=== PATIENT | female | born 1985 | race Caucasian/White ===

== ENCOUNTER 2018-08-08 20:21 | Outpatient (REF) | payer MEDICAID, SELFPAY | END 2018-08-08 20:41 | LOC: NCHCN 20:21 | PROVIDERS: PCP Family Medicine; Visit Provider Family Medicine | DX: R19.7 Diarrhea, unspecified (principal) | CPT/HCPCS: 87329; 87177 ==

== ENCOUNTER 2018-08-20 20:00 | Outpatient (REF) | payer MEDICAID, SELFPAY ==
[2018-08-20 20:55] LABS: Abs Immature Grans 0.01 k/cumm (0.0-0.09); Absolute Basophil Count 0.01 k/cumm (0.0-0.2); Absolute Eosinophil Count 0.07 k/cumm (0.0-0.7); Absolute Lymphocyte Count 2.28 k/cumm (1.2-3.4); Absolute Monocyte Count 0.45 k/cumm (0.11-0.7); Absolute Neutrophil Count 4.34 k/cumm (1.2-6.7); Basophils % 0.1; HCT 38.8 % (36.0-46.0); HGB 13.3 g/dL (12.0-15.5); Immature Grans % 0.1; Lymphocytes % 31.8; Mean Corp. HGB Concentration 34.3 g/dL (32.0-36.0); Mean Corpuscular Hemoglobin 27.3 pg (27.0-33.0); Mean Corpuscular Volume 79.7 fL (80-95); Mean Platelet Volume 10.9 fL (8.0-11.0); Monocytes % 6.3; Neutrophils % 60.7; Platelet Count 269 x1000/uL (130-400); RBC 4.87 m/cumm (4.00-5.20); RBC Distribution Width 13.1 % (11.7-14.6); White Blood Cell Count 7.16 k/cumm (4.4-10.8)
[2018-08-20 21:51] LABS: TSH (W/Ref FT4) 2.22 uIU/mL (0.358-3.74)
== END 2018-08-20 20:20 ==
LOC: NCHCN 20:00
PROVIDERS: PCP Family Medicine; Visit Provider Physician Assistant Medical
DX: R53.83 Other fatigue (principal)
CPT/HCPCS: 84443; 85025

== ENCOUNTER 2018-09-16 02:06 | Outpatient (CLI) | payer MEDICAID, SELFPAY ==
--- NOTE | 2018-09-16 10:00 | SATEXT_ITS ---
September 16, 2018 1000h Assessment: Ms. Alcocer presents for nutritional counseling for chronic diarrhea. She reports that she has had this problem for the past three since she has had her gallbladder out. She has always eaten a low fat diet as she reports she has become accustomed to it in order to prevent a gallbladder attack. Her dietary recall shows that she eats quite moderately and does not eat any of the same things consistently. She does eat apples daily [place] Ms. Alcocer reports that at this time she does not take any medications for her diarrhea. Ms. Alcocer reports that her diarrhea affects her life such that she does not make many plans to leave the house depending on what she thinks the bathroom situation will be. Nutritional Diagnosis: Altered gastrointestinal function as evidenced by patient report of chronic diarrhea. Intervention: We discussed that dietary interventions for diarrhea can be trial and error. I did suggest that she speak to her health care provider about a trial of cholestyramine given that her chronic diarrhea issues started after she had her gallbladder removed. Ms. Alcocer said she would bring that up. In addition to any medication, I explained that we would still trial dietary interventions. I suggested that we start with a 1-2 week strict trial of a low FODMAP diet, which would exclude her daily apple and products made from gluten flours among many other things. However, there were many low FODMAP foods that she eats and could include in her daily life. Provided written materials. Monitoring and Evaluation: 1. Ms. Alcocer will email me with food records for one week or call me. I will monitor her progress and her tolerance to a low FODMAP diet. 2. Will evaluate her nutrition care plan based on her tolerance to a low FODMAP and will take it from there. 3. Would suggest a trial of cholestyramine if her healthcare provider and the patient are in agreement. Thank you for the referral.
== END 2018-09-16 02:26 ==
PROVIDERS: PCP Nurse Practitioner Family; Visit Provider Dietitian, Registered
DX: R19.7 Diarrhea, unspecified (principal); Z71.3 Dietary counseling and surveillance
CPT/HCPCS: 97802

== ENCOUNTER 2018-10-13 00:28 | Outpatient (CLI) | payer MEDICAID, SELFPAY ==
--- NOTE | 2018-10-13 09:23 | DI.US_ITS ---
SYMPTOM/DIAGNOSIS:THYROMEGALY E01.0 THYROID ULTRASOUND: Routine examination. The right lobe measures 5 x 1.6 x 1.0 cm The left lobe measures 5.1 x 1.3 x 1.0 cm/ The isthmus measures up to 0.7 cm in thickness. The thyroid gland is homogeneous with normal and symmetric blood flow. No evidence of a thyroid mass is identified. IMPRESSION: Normal thyroid ultrasound.
== END 2018-10-13 00:48 ==
PROVIDERS: PCP Nurse Practitioner Family; Visit Provider Otolaryngology Otolaryngology/Facial Plastic Surgery
DX: E01.0 Iodine-deficiency related diffuse (endemic) goiter (principal)
CPT/HCPCS: 76536

== ENCOUNTER 2018-11-03 11:36 | Outpatient (REF) | payer MEDICAID, SELFPAY ==
[2018-11-03 13:03] LABS: *AMPHETAMINES SCREEN URINE Negative (Negative); *BARBITURATES SCREEN URINE Negative (Negative); *BENZODIAZEPINES SCREEN URINE Negative (Negative); Cannabinoids THC Negative (Negative); Cocaine Screen,Urine Negative (Negative); METHADONE URINE SCREEN Negative (Negative); OPIATES URINE SCREEN Negative (Negative)
[2018-11-03 13:06] LABS: Tricyclic Antidepressants Negative (Negative)
[2018-11-04 14:51] LABS: Chlamydia Result Negative; GC Result Negative; Specimen Description CERVIX
== END 2018-11-03 11:56 ==
LOC: LBN 11:36
PROVIDERS: PCP Nurse Practitioner Family; Visit Provider Advanced Practice Midwife
DX: Z34.91 Encounter for supervision of normal pregnancy, unspecified, first trimester (principal); Z11.3 Encounter for screening for infections with a predominantly sexual mode of transmission
CPT/HCPCS: 80307; 87491; 87591; 87086

== ENCOUNTER 2018-11-13 01:24 | Outpatient (CLI) | payer MEDICAID, SELFPAY ==
--- NOTE | 2018-11-13 14:52 | W.NUTRFU ---
Date of service: 11/13/18 Time of Service: 08:30 Nutritional Follow up NOTE: Solange presents for nutritional counseling for healthful nutrition therapy for . She reports that she does not gain more than 25 pounds in this . She is 65. Her pregravid weight is 172 lbs which gives her a BMI of 30.5kg/m2 consistent with class 1 obesity. Her expected weight gain is 15 to 25 lbs. She is currently almost 12 weeks gestation and has gained zero pounds, which is WNL. We discussed that she is on a good track to not gain excessive weight. Her dietary recall shows that she eats very healthfully and not excessively. We reviewed a 2400 calorie eating plan for her second and third trimester as well as sample menus and a cookbook. Solange will follow up with me as needed throughout her for weight management nutrition therapy and/or general nutrition therapy. She has my contact information and is encouraged to contact me with any questions or concerns regarding her nutrition therapy. Time Spent in Nutritional Counseling and Treatment: 20 minutes face to face
== END 2018-11-13 01:44 ==
PROVIDERS: PCP Nurse Practitioner Family; Visit Provider Dietitian, Registered
DX: Z34.91 Encounter for supervision of normal pregnancy, unspecified, first trimester (principal); Z71.3 Dietary counseling and surveillance
CPT/HCPCS: 97802

== ENCOUNTER 2018-12-29 01:05 | Outpatient (CLI) | payer MEDICAID, SELFPAY ==
--- NOTE | 2018-12-29 08:33 | DI.US_ITS ---
Many abnormalities cannot be diagnosed. A normal exam does not exclude a congenital anomaly. Radiology No. LMP: Exam Date: 12/29/18 [facility] wks days on EDC ([facility]) 06/01/19 PREDICTED GESTATIONAL AGE NUMBER 18 weeks with a range of 17 week to 19 weeks. 1 Determined by___1STUS___LMP_X__HISTORY Info. pertaining to fetus # PLACENTA PRESENTATION Grade I Cephalic___ Anterior___Posterior__X_ Breech____ Right Left Transverse(head right___ Fundal___Low-lying___Previa___ Transverse(head left___ Varying____X__ BIOMETRY AMNIOTIC FLUID BPD: 40 mm 18.1 weeks Normal HC: 155 mm 18.3 weeks AC: 129 mm 18.3 weeks FL: 27 mm 18.3 weeks AMNIOTIC FLUID INDEX >26 WK CRL: mm weeks Cisterna Magna: 2.1 mm CI: 76 RUQ: LUQ Cerebellum: 1.83 cm EFW: 237 grams 69th Percentile RLQ: LLQ Total: cms Composite AGE= 18.3 wks EDC by US 05/29/19 BIOPHYSICAL PROFILE ANATOMY IDENTIFIED SCORE 0/2 Heart: 4-Chamber__X_Rate:BPM___152__ LVOT: X____ RVOT:____X____ Amniotic Fluid(>2cms)____ Stomach:____X___ Kidneys:____X___ Respirations (>30 secs) Bladder: X___ Post. Fossa:___X Body Flex/Extension 3 vessel cord:__X Ventricles:___X cord insertion:___X__ Lips:____X Extremity Flex/Extension spinal morphology:___X Nose:X Total Score= Palate:____X___ NS=not seen The fetus was in variable position during the exam. Placenta is anterior. The biometric measurements correspond to 18 weeks 3 days, consistent with previous dating. No abnormalities are seen. The amount of amniotic fluid appears normal. The cervix appears intact. The placenta appears low lying, measuring 1.5 cm. from the internal os. IMPRESSION: Low lying placenta. anatomy survey is within normal limits.
== END 2018-12-29 01:25 ==
PROVIDERS: PCP Nurse Practitioner Family; Visit Provider Advanced Practice Midwife
DX: Z34.92 Encounter for supervision of normal pregnancy, unspecified, second trimester (principal)
CPT/HCPCS: 76805

== ENCOUNTER 2019-03-10 01:00 | Outpatient (CLI) | payer MEDICAID, SELFPAY ==
--- NOTE | 2019-03-10 10:49 | DI.US_ITS ---
SYMPTOMS/DIAGNOSIS: CHECK PLACENTA, PREVIOUS LOW LYING PLACENTA OB ULTRASOUND: Comparison is made with [id number]. The fetus is in breech position. The placenta is posterior. The tip of the placenta is far from the internal os. There is no evidence of a low lying placenta. cardia activity is noted at 139 bpm. The amniotic fluid amount appears visually normal. IMPRESSION: No evidence of a low lying placenta. Predicted Gestational Age: Indication/History: 28 Wks Range: to Prior US done on: Determined by: First US LMP History EDC by prior US: For multiple gestations: Baby PLACENTA: Grade: I-II Location: Anterior Posterior X PRESENTATION: RT LT LOW LYING PREVIA Cephalic Trans (Head RT LT ) Varied Breech X BIOMETRY: Anatomy Identified: BPD: mm wks 4 chamber Heart Heart Rate 139 BPM HC: mm wks LVOT Post Fossa AC: mm wks RVOT Ventricles FL: mm wks Stomach Nose Bladder Lips Cisterna Magna: mm CI: Kidneys Palate Cerebellum: mm 3 vessel cord Spine EFW: grms % Cord Insertion NS= not seen Composite Age (US) wks Many abnormalities cannot be diagnosed. A normal exam does not exclude congenital abnormality. EDC by US Amniotic Fluid Index: Oligo Normal Polyhydramnios COMMENTS: RUQ: LUQ: RLQ: LLQ: Total: cm Biophysical Profile: Score 0/2 JOHANNA (>2cm) Respirations (>30 sec) Body flexion/extension Extremity flexion/extension TOTAL SCORE Placental tip 11.2 cm from internal os
== END 2019-03-10 01:20 ==
PROVIDERS: PCP Nurse Practitioner Family; Visit Provider Advanced Practice Midwife
DX: Z34.93 Encounter for supervision of normal pregnancy, unspecified, third trimester (principal); Z36.2 Encounter for other antenatal screening follow-up
CPT/HCPCS: 76815

== ENCOUNTER 2019-03-10 10:34 | Outpatient (CLI) | payer MEDICAID, SELFPAY ==
[2019-03-10 10:56] LABS: Abs Immature Grans 0.09 k/cumm (0.0-0.09); Absolute Basophil Count 0.01 k/cumm (0.0-0.2); Absolute Eosinophil Count 0.05 k/cumm (0.0-0.7); Absolute Lymphocyte Count 1.44 k/cumm (1.2-3.4); Absolute Monocyte Count 0.39 k/cumm (0.11-0.7); Basophils % 0.1; Eosinophils % 0.5; HCT 35.3 % (36.0-46.0); HGB 12.3 g/dL (12.0-15.5); Immature Grans % 0.9; Mean Corp. HGB Concentration 34.8 g/dL (32.0-36.0); Mean Corpuscular Hemoglobin 29.6 pg (27.0-33.0); Mean Corpuscular Volume 85.1 fL (80-95); Mean Platelet Volume 9.7 fL (8.0-11.0); Monocytes % 4.1; Neutrophils % 79.4; Platelet Count 216 x1000/uL (130-400); RBC 4.15 m/cumm (4.00-5.20); RBC Distribution Width 13.6 % (11.7-14.6); White Blood Cell Count 9.58 k/cumm (4.4-10.8)
[2019-03-10 11:10] LABS: Glucose,1 Hr (Glucola) 141 mg/dL (80-140)
[2019-03-11 10:54] LABS: Hepatitis B Surface Ag Negative (NEGAT)
[2019-03-11 11:03] LABS: HIV-1/2 Ag & Ab Screen Negative (NEGAT)
[2019-03-11 11:19] LABS: Hepatitis C Ab w Rflx HCV PCR Negative (NEGAT)
[2019-03-11 12:14] LABS: Rubella IgG Ab (UVM) Positive; Syphilis Serology (RPR) Negative (Negative); Varicella IgG Antibody Positive
== END 2019-03-10 10:54 ==
PROVIDERS: PCP Nurse Practitioner Family; Visit Provider Advanced Practice Midwife
DX: Z34.92 Encounter for supervision of normal pregnancy, unspecified, second trimester (principal); Z11.4 Encounter for screening for human immunodeficiency virus [HIV]; Z11.59 Encounter for screening for other viral diseases; Z01.84 Encounter for antibody response examination; Z36.2 Encounter for other antenatal screening follow-up
CPT/HCPCS: 36415; 76815; 80055; 82950; 86787; 86803; 86850; 86900; 86901; 87340; 87389; 90384; 86592; 86762

== ENCOUNTER 2019-03-10 11:18 | Outpatient (CLI) | payer MEDICAID, SELFPAY | END 2019-03-10 11:38 | PROVIDERS: PCP Nurse Practitioner Family; Visit Provider Advanced Practice Midwife | DX: Z01.818 Encounter for other preprocedural examination (principal) ==

== ENCOUNTER 2019-03-27 02:00 | Outpatient (CLI) | payer MEDICAID, SELFPAY ==
[2019-03-27 08:20] LABS: INR 0.9 (0.9-1.1); PTT Activated 25.3 sec (21.0-31.4); Prothrombin Time 9.3 sec (9.3-11.0)
[2019-03-27 10:01] LABS: Glucose 1 Hour 149 mg/dL
[2019-03-27 11:46] LABS: Glucose 3 Hour 125 mg/dL
== END 2019-03-27 02:20 ==
PROVIDERS: PCP Nurse Practitioner Family; Visit Provider Advanced Practice Midwife
DX: Z34.90 Encounter for supervision of normal pregnancy, unspecified, unspecified trimester (principal); R73.09 Other abnormal glucose
CPT/HCPCS: 36410; 82951; 85610; 85730

== ENCOUNTER 2019-05-04 11:18 | Outpatient (CLI) | payer MEDICAID, SELFPAY ==
[2019-05-04 12:31] LABS: Tricyclic Antidepressants Negative (Negative)
[2019-05-04 12:37] LABS: *AMPHETAMINES SCREEN URINE Negative (Negative); *BARBITURATES SCREEN URINE Negative (Negative); *BENZODIAZEPINES SCREEN URINE Negative (Negative); Cannabinoids THC Negative (Negative); Cocaine Screen,Urine Negative (Negative); METHADONE URINE SCREEN Negative (Negative); OPIATES URINE SCREEN Negative (Negative)
[2019-05-07 10:23] LABS: Buprenorphine Negative; Norbuprenorphine Negative
== END 2019-05-04 11:38 ==
PROVIDERS: Advanced Practice Midwife; PCP Nurse Practitioner Family; Visit Provider Advanced Practice Midwife
DX: Z34.93 Encounter for supervision of normal pregnancy, unspecified, third trimester (principal)
CPT/HCPCS: 80307

== ENCOUNTER 2019-05-11 15:55 | Outpatient (REF) | payer MEDICAID, SELFPAY | END 2019-05-11 16:15 | LOC: LBN 15:55 | PROVIDERS: PCP Nurse Practitioner Family; Visit Provider Advanced Practice Midwife | DX: Z34.93 Encounter for supervision of normal pregnancy, unspecified, third trimester (principal); Z36.85 Encounter for antenatal screening for Streptococcus B | CPT/HCPCS: 87081 ==

== ENCOUNTER 2019-05-18 00:40 | Outpatient (CLI) | payer MEDICAID, SELFPAY ==
--- NOTE | 2019-05-18 10:44 | DI.US_ITS ---
SYMPTOM/DIAGNOSIS: EFW, H/O UTERINE SCAR FROM PREVIOUS Z98.891 OBSTETRICAL ULTRASOUND: There is a single uterine gestation. Estimated sonographic age is 40 weeks. The fetus is in the cephalic presentation. heart rate is 132 BPM. anatomic evaluation was not performed at this time. The placenta is posterior without evidence of previa. Amniotic fluid index is 17.3 cm, visually amniotic fluid is within normal limits. IMPRESSION: Single living intrauterine gestation, estimated sonographic age is 40 weeks. Predicted Gestational Age: Indication/History: 37 +6 Wks Range: 36 +6 to 38 +6 Prior US done on: 06/02/2019 Determined by: First US LMP History EDC by prior US: For multiple gestations: Baby PLACENTA: Grade: II - III Location: Posterior PRESENTATION: RT LT LOW LYING PREVIA Cephalic XX Trans (Head RT LT ) Varied Breech BIOMETRY: Anatomy Identified: BPD: 97 mm 39 +3 wks 4 chamber Heart Heart Rate 132 BPM HC: 356 mm 41 +5 wks LVOT Post Fossa AC: 372 mm 41 +1 wks RVOT Ventricles FL: 73 mm 37 +3 wks Stomach Nose Bladder Lips Cisterna Magna: mm CI: 83 Kidneys Palate Cerebellum: mm 3 vessel cord Spine EFW: 4039 grms 98 % Cord Insertion NS= not seen Composite Age (US) 40 wks Many abnormalities cannot be diagnosed. A normal exam does not exclude congenital abnormality. EDC by US 05/18/19 Amniotic Fluid Index: Normal COMMENTS: RUQ: 3.98 LUQ: 6.74 RLQ: 3.3 LLQ: 3.07 Total: 17.3 cm Biophysical Profile: Score 0/2 JOHANNA (>2cm) Respirations (>30 sec) Body flexion/extension Extremity flexion/extension TOTAL SCORE
== END 2019-05-18 01:00 ==
PROVIDERS: PCP Nurse Practitioner Family; Visit Provider Advanced Practice Midwife
DX: Z34.93 Encounter for supervision of normal pregnancy, unspecified, third trimester (principal); Z98.891 History of uterine scar from previous surgery
CPT/HCPCS: 76815

== ENCOUNTER 2019-05-20 01:01 | Inpatient (IN) | payer MEDICAID, SELFPAY ==
[2019-05-20 02:26] LABS: HCT 37.6 % (36.0-46.0); Mean Corp. HGB Concentration 34.6 g/dL (32.0-36.0); Mean Corpuscular Volume 83.9 fL (80-95); Mean Platelet Volume 10.1 fL (8.0-11.0); Platelet Count 225 x1000/uL (130-400); RBC 4.48 m/cumm (4.00-5.20); White Blood Cell Count 10.51 k/cumm (4.4-10.8)
[2019-05-20] MEDS: Normal Saline Flush 10 ML SYR ×3 (08:33→15:07)
[2019-05-20] MEDS: Acyclovir 400 MG TAB PO (10:09)
[2019-05-20] MEDS: Normal Saline Flush 10 ML SYR IVP (10:36)
== END 2019-05-20 17:03 | disposition short-term general hospital (02) | DRG 833 ==
PROVIDERS: Admitting Provider Advanced Practice Midwife; PCP Nurse Practitioner Family; Visit Provider Advanced Practice Midwife
DX: O42.92 Full-term premature rupture of membranes, unspecified as to length of time between rupture and onset of labor (principal); O34.211 Maternal care for low transverse scar from previous cesarean delivery; Z3A.38 38 weeks gestation of pregnancy; Z22.4 Carrier of infections with a predominantly sexual mode of transmission
CPT/HCPCS: 36415; 85027; 86850; 86900; 86901; 86870

== ENCOUNTER 2019-05-27 15:24 | Outpatient (CLI) | payer MEDICAID, SELFPAY ==
[2019-05-27 16:01] LABS: HCT 39.1 % (36.0-46.0); HGB 13.4 g/dL (12.0-15.5); Mean Corp. HGB Concentration 34.3 g/dL (32.0-36.0); Mean Corpuscular Hemoglobin 28.8 pg (27.0-33.0); Mean Corpuscular Volume 83.9 fL (80-95); Mean Platelet Volume 9.7 fL (8.0-11.0); Platelet Count 276 x1000/uL (130-400); RBC 4.66 m/cumm (4.00-5.20); RBC Distribution Width 13.3 % (11.7-14.6); White Blood Cell Count 7.91 k/cumm (4.4-10.8)
== END 2019-05-27 15:44 ==
PROVIDERS: PCP Nurse Practitioner Family; Visit Provider Advanced Practice Midwife
DX: Z34.93 Encounter for supervision of normal pregnancy, unspecified, third trimester (principal)
CPT/HCPCS: 36415; 85027

== ENCOUNTER 2019-07-02 11:11 | Outpatient (REF) | payer MEDICAID, SELFPAY ==
--- NOTE | 2019-07-02 09:25 | PAPFT_PTH ---
PATIENT: Solange Alcocer LOC: [facility] U#:[id number] AGE/SX: 34/F ROOM: RE07/02/[address]: Megan Rosado : 1985 BED: DIS: 07/02/2019 SPEC #: [id number] RECD: 07/02/19 12:50 STATUS: ALEX REQ #: [id number] YVES: 07/02/19 09:[address]: Megan Rosado DEPT: REPLACED BY [facility] Cytology RECD BY: Carine Sellers ENTERED: 07/02/19 12:50 SP TYPE: PAPFT OTHR DR: Michelle Arroyo Tissues: 1 - CX/ENDOCX FOR PAP SMEARS Procedures: PAP THIN PREP/UVM Screening HPV DNA PROBE Comments: [id number]
== END 2019-07-02 11:31 ==
LOC: LBN 11:11
PROVIDERS: PCP Nurse Practitioner Family; Visit Provider Advanced Practice Midwife
DX: N89.8 Other specified noninflammatory disorders of vagina (principal); Z12.4 Encounter for screening for malignant neoplasm of cervix; Z11.51 Encounter for screening for human papillomavirus (HPV)
CPT/HCPCS: 88142; 87480; 87510; 87624; 87660

== ENCOUNTER 2021-05-02 16:40 | Outpatient (REF) | payer MEDICAID, SELFPAY ==
[2021-05-02 22:07] LABS: HCT 42.9 % (36.0-46.0); HGB 14.2 g/dL (11.2-15.7); MCH 27.3 pg (27.0-33.0); MCHC 33.1 % (32.0-36.0); MCV 82.3 fL (80-95); MPV 10.9 fL (8.0-11.0); Platelet Count 270 10^3/uL (130-400); RBC 5.21 10^6/uL (3.93-5.22); RDW 13.1 % (11.7-14.6); RDW-SD 38.5 fL; WBC 4.97 10^3/uL (4.4-10.8)
[2021-05-02 22:24] LABS: Hemoglobin A1C 5.3 % (<5.7)
[2021-05-02 22:31] LABS: TSH 1.44 uIU/mL (0.36-3.74)
[2021-05-02 22:45] LABS: Vitamin D 25 Total 29.6 ng/mL (30-100)
== END 2021-05-02 16:41 | disposition home or self-care (01) ==
LOC: NCHCN 16:40
PROVIDERS: PCP Nurse Practitioner Family; Visit Provider Nurse Practitioner Family
DX: R53.83 Other fatigue (principal)
CPT/HCPCS: 82306; 85027; 83036; 84443

== ENCOUNTER 2021-05-03 11:47 | Outpatient (REF) | payer MEDICAID, SELFPAY ==
[2021-05-03 11:04] LABS: C Diff PCR Negative (Negative)
[2021-05-03 23:45] LABS: Campylobacter PCR Negative (Negative); Salmonella PCR Negative (Negative); Shiga Toxin PCR Negative (Negative); Shigella/Enteroinvasive Ecoli Negative (Negative)
== END 2021-05-03 11:48 | disposition home or self-care (01) ==
LOC: NCHCN 11:47
PROVIDERS: PCP Nurse Practitioner Family; Visit Provider Nurse Practitioner Family
DX: Z00.00 Encounter for general adult medical examination without abnormal findings (principal); R19.7 Diarrhea, unspecified
CPT/HCPCS: 87329; 87493; 87505; 82272; 83630; 87177

== ENCOUNTER 2021-07-26 17:00 | Outpatient (REF) | payer MEDICAID, SELFPAY ==
[2021-07-26 20:22] LABS: TSH 2.38 uIU/mL (0.36-3.74)
[2021-07-27 17:59] LABS: Prolactin 9.4 ng/mL (See Table)
== END 2021-07-26 17:01 | disposition home or self-care (01) ==
LOC: NCHCN 17:00
PROVIDERS: PCP Nurse Practitioner Family; Visit Provider Nurse Practitioner Family
DX: N64.52 Nipple discharge (principal); N64.4 Mastodynia
CPT/HCPCS: 84146; 84443

== ENCOUNTER 2021-09-15 02:59 | Outpatient (CLI) | payer MEDICAID, SELFPAY ==
[2021-09-15 16:59] LABS: Iron 58 ug/dL (50-170); Total Iron Binding Capacity 366 ug/dL (250-450); Transferrin Sat 16 % (15-50)
[2021-09-15 17:41] LABS: ALT 26 U/L (14-59); AST 15 U/L (15-37); Albumin 4.3 g/dL (3.4-5.0); Alkaline Phosphatase 55 U/L (46-116); Anion Gap 11.1 mmol/L (3-11); BUN 12 mg/dL (7-18); Bilirubin, Total 0.3 mg/dL (0.2-1.0); CO2 26.9 mmol/L (21.0-32.0); CREATININE 0.7 mg/dL (0.55-1.02); Calcium 8.9 mg/dL (8.5-10.1); Chloride 104 mmol/L (98-107); Ferritin 39 ng/mL (8-252); Glucose 85 mg/dL (74-106); Potassium 3.5 mmol/L (3.5-5.1); Sodium 142 mmol/L (136-145); TSH 1.54 uIU/mL (0.36-3.74); Total Protein 7.5 g/dL (6.4-8.2); Vitamin B12 350 pg/mL (193-986)
[2021-09-15 17:42] LABS: Folate > 20.0 ng/mL (8.6-20.0)
[2021-09-15 17:58] LABS: FREE T4 0.95 ng/dL (0.76-1.46)
[2021-09-15 22:21] LABS: T3, Total 142 ng/dL (97-169)
[2021-09-18 08:41] LABS: DHEA Sulfate 126 ug/dL (96-512)
[2021-09-18 10:39] LABS: IgA 215 mg/dL (85-499); IgG 952 mg/dL (610-1,616); IgM 150 mg/dL (35-242)
[2021-09-18 11:35] LABS: IgE 8 IU/mL (<158)
[2021-09-19 19:11] LABS: Testosterone, Free 0.33 ng/dL (0.06-1.03); Testosterone, Total 9.6 ng/dL (8-60)
[2021-09-20 10:08] LABS: Estradiol, Mass Spectrometry 19 pg/mL; Estrone 18 pg/mL
== END 2021-09-15 03:00 | disposition home or self-care (01) ==
LOC: LBO 02:59
PROVIDERS: PCP Nurse Practitioner Family; Visit Provider Naturopath
DX: R19.7 Diarrhea, unspecified (principal); R53.83 Other fatigue; N64.4 Mastodynia; R10.9 Unspecified abdominal pain
CPT/HCPCS: 36415; 80053; 82627; 82784; 84402; 84403; 82607; 82670; 82679; 82728; 82746; 82785; 83540; 83550; 84144; 84439; 84443; 84480

== ENCOUNTER 2023-01-14 13:37 | Outpatient (REF) | payer MEDICAID, SELFPAY ==
[2023-01-14 16:09] LABS: Hemoglobin A1C 5.3 % (<5.7)
[2023-01-14 16:53] LABS: Calculated LDL 88 mg/dL (<100); Cholesterol 153 mg/dL (<200); HDL Cholesterol 51 mg/dL (40-60); TSH 1.63 uIU/mL (0.36-3.74); Triglyceride 71 mg/dL (<150)
[2023-01-14 19:03] LABS: FREE T4 0.92 ng/dL (0.76-1.46)
[2023-01-15 09:17] LABS: HCT 40.1 % (36.0-46.0); HGB 13.5 g/dL (11.2-15.7); MCH 26.6 pg (27.0-33.0); MCHC 33.7 % (32.0-36.0); MCV 79 fL (80-95); MPV 10.8 fL (8.0-11.0); Platelet Count 282 10^3/uL (130-400); RBC 5.08 10^6/uL (3.93-5.22); RDW 13.1 % (11.7-14.6); WBC 5.15 10^3/uL (4.4-10.8)
[2023-01-15 18:51] LABS: FSH 6.4 mIU/mL (See Note); LH 5.1 mIU/mL (See Note); Prolactin 5.1 ng/mL (See Note)
[2023-01-16 09:50] LABS: DHEA Sulfate 123 ug/dL (75-410)
[2023-01-23 16:45] LABS: Testosterone, Free 0.43 ng/dL (<0.13-1.00); Testosterone, Total 12 ng/dL (8-60)
== END 2023-01-14 13:38 | disposition home or self-care (01) ==
LOC: NCHCN 13:37
PROVIDERS: PCP Nurse Practitioner Family; Visit Provider Nurse Practitioner Family
DX: F41.8 Other specified anxiety disorders (principal); L68.0 Hirsutism; L70.8 Other acne; R53.83 Other fatigue; Z13.1 Encounter for screening for diabetes mellitus; Z13.220 Encounter for screening for lipoid disorders
CPT/HCPCS: 80061; 82627; 84402; 84403; 85027; 83001; 83002; 83036; 84146; 84439; 84443

== ENCOUNTER 2023-04-04 09:50 | Emergency (ER) | payer MEDICAID, SELFPAY ==
[2023-04-04 10:01] VITALS: BP 111/80; PULSE 96; RESP 18; TEMP 36.7; O2SAT 98
--- NOTE | 2023-04-04 10:12 | W.ED.GENAD ---
Discharge Plan Disposition Patient Disposition: Home Discharge Details Clinical Impression: Diarrhea, Acute dehydration Primary Care Provider: Michelle Arroyo ED Provider: Ben Fallon Home Meds and New Rx's Prescriptions: New ondansetron 4 mg tablet,disintegrating 4 mg PO BID PRN (Reason: nausea and vomiting) Qty: 7 0RF No Action prenat.vits,carline,qgi-[id number] tablet 1 tab PO DAILY cholecalciferol (vitamin D3) 50 mcg (2,000 unit) capsule 50 mcg PO DAILY acetaminophen [Tylenol] 325 mg capsule 325 mg PO ONCE PRN multivitamin [Daily Multi-Vitamin] Tablet 1 tab PO DAILY zinc acetate 25 mg (zinc) capsule 25 mg PO DAILY Discharge Instructions Instructions: Dehydration (ED), Acute Diarrhea (ED) Medical Decision Making 38-year-old female presents with 3 to 4 days of nausea abdominal cramping and diarrhea with loose green stool no blood no mucus. Afebrile nontoxic hemodynamically stable. Consider viral syndrome viral gastroenteritis versus foodborne illness versus less likely diverticulitis or appendicitis. Must also consider UTI. Will obtain basic labs fluids antiemetics analgesia urinalysis. Disposition pending reassessment. 14: 15 patient resting comfortably feeling better after 2 L crystalloid. No vomiting in department. Color greatly improved symptomatology greatly improved. HPI General Date/Time Provider Initiated Documentation: 04/04/23 09:56. HPI Narrative: 38-year-old male presents with 3 days of nausea diarrhea multiple doses of loose green stool and abdominal cramping. Body aches and dehydration. History of cholecystectomy. Related Data Home Medications Medication Instructions Recorded Confirmed prenat.vits,carline,cwt-[id number]-xjwze 1 tab PO DAILY 09/26/18 07/02/19 acetaminophen 325 mg capsule 325 mg PO ONCE PRN 02/25/23 04/04/23 (Tylenol) cholecalciferol (vitamin D3) 50 50 mcg PO DAILY 02/25/23 04/04/23 mcg (2,000 unit) capsule multivitamin (Daily Multi-Vitamin 1 tab PO DAILY 02/25/23 04/04/23 tablet) zinc acetate 25 mg (zinc) capsule 25 mg PO DAILY 02/25/23 04/04/23 ondansetron 4 mg disintegrating 4 mg PO BID PRN nausea and 04/04/23 tablet vomiting #7 tabs Previous Rx's Medication Instructions Recorded ondansetron 4 mg disintegrating 4 mg PO BID PRN nausea and 04/04/23 tablet vomiting #7 tabs Allergies Allergy/AdvReac Type Severity Reaction Status Date / Time amoxicillin Allergy Unknown HIVES Verified 07/02/19 08:55 penicillin G Allergy Unknown HIVES Verified 07/02/19 08:55 cetirizine [From Zyrtec] Allergy Verified 02/25/23 11:49 clindamycin Allergy Verified 02/25/23 11:49 mold Allergy Verified 02/25/23 11:49 diphenhydramine HCl AdvReac Unknown anxious, Verified 07/02/19 08:55 [From Benadryl] paranoid, couln't sleep CILLINS Allergy Intermediate HIVES Uncoded 07/02/19 08:55 General Stated Complaint: Nausea/Vomit/Diar JORGE: 3 Review of Systems Narrative: Review of Systems Constitutional: negative Eyes: negative ENT: negative Cardiovascular: negative Respiratory: negative Gastrointestinal: Abdominal pain nausea diarrhea : negative Musculoskeletal: negative Skin: negative Neurologic: negative Psych: negative PFSH All Active Problems (Updated 04/04/23 @ 14:16 by Ben Fallon MD) Diarrhea (Acute) Acute dehydration (Acute) (Acute) Vaginal discharge (Acute) History of anxiety (Chronic) with third History of depression (Chronic) Vertigo (Chronic) Environmental allergies (Chronic) Previous section (Chronic) Herpes genitalis (Chronic) examination or test, positive result (Acute 05/01/16) Medical History (Updated 04/04/23 @ 14:16 by Ben Fallon MD) Acne Allergic rhinitis Anxiety Breast pain, right Calcium deposit in bursa of right hand Chronic diarrhea Deviated septum Diarrhea Dyspareunia Encounter for allergy testing Fatigue Headache Hirsutism History of migraine History of snoring Knee pain, left Left inguinal pain Low back pain Mammary duct ectasia Menorrhagia Pelvic pain in female Rhinosinusitis Seasonal allergies Sinusitis, acute Stress Surgical History section (12/16/16) Cholecystectomy (06/29/15) Dr. karyn Gerard Family History Mother Heart disease tachycardia with surgical intervention Father Mental disorder onmedications Sister No problems noted. Sister No problems noted. Brother No problems noted. Brother No problems noted. Brother No problems noted. Brother No problems noted. Brother No problems noted. Brother No problems noted. Other Myocardial infarction Social History Smoking/Tobacco Use Status: Former Tobacco Use Smoking risk assessment performed?: Yes Alcohol Intake: former Drug use: Never Substance use type: does not use Do you feel safe at home: Yes Do you feel safe in your relationship?: Yes Female Reproductive History Menstrual Age of Menarche: 16 Duration of menses: 3-5 days control method: condoms History History 5 Para 4 Hx # Term Pregnancies 4 Multiple births 0 Hx # Pregnancies 0 Ectopic pregnancies 0 AB induced 1 Hx Number of Living Children 4 AB spontaneous 0 Past Pregnancies Del. Date GA/Weeks # Preg Succ Route Wgt Sex Labor Lgth Anesthesia Location Prov Complic 06/18/11 40 No vaginal 3727.962 g Female 14 hrs [facility] 11/20/12 42 No vaginal 4365.827 g Male 24 [facility] 12/16/16 37 No 4365.827 g Male 24 hrs [facility] c/s by dr. charlton 05/21/19 38 No vaginal 3070.253 g Male [facility] Delivery Date: 06/18/11 Last Updated by: Zuly Izquierdo CNM w/o complications Delivery Date: 11/20/12 Last Updated by: Zuly Izquierdo CNM iol for post dates, w/o comp. Delivery Date: 12/16/16 Last Updated by: Megan Rosado CNM c/s for breech, in labor at 8 cms. Delivery Date: 05/21/19 Last Updated by: Ana Luisa Wagner LPN Presented at [facility] with PROM; transferred to [facility] due to previous and desired TOLAC after PROM; Exam Narrative Exam Narrative: Physical Examination General: alert, awake, cooperative, resting comfortably, no acute distress HEENT: normocephalic, atraumatic; PERRL, EOM intact, conjunctiva normal; no nasal discharge; moist mucous membranes, oral and pharyngeal mucosa normal, tolerating secretions Neck: supple, trachea midline; full ROM Chest: normal to inspection Respiratory: normal respiratory effort, speaking in full sentences, clear to auscultation, no wheezing, rales or rhonchi Cardiac: regular rate, regular rhythm, S1S2 intact, no murmurs rubs or gallops GI: abdomen soft, non-tender, non-distended; no palpable mass or hepatosplenomegaly Skin: no lesions, rashes or trauma appreciated Neuro: AAOx3, normal speech, moving all extremities Psych: Appropriate mood and affect Course Vital Signs Vital signs: Vital Signs Temperature 36.7 C 04/04/23 10:01 Pulse 96 H 04/04/23 10:01 Respiratory Rate 18 04/04/23 10:01 Blood Pressure 111/80 04/04/23 10:01 Pulse Oximetry 98 04/04/23 10:01 Temperature 36.7 C 04/04/23 10:01 Temperature Source Temporal Artery Scan 04/04/23 10:01 Pulse 96 H 04/04/23 10:01 Respiratory Rate 18 04/04/23 10:01 Respiratory Effort Normal 04/04/23 10:04 Blood Pressure 111/80 04/04/23 10:01 Blood Pressure Position Sitting 04/04/23 10:01 Pulse Oximetry 98 04/04/23 10:01 Oxygen Delivery Method Room Air 04/04/23 10:01 Oxygen Flow Rate 0 04/04/23 10:01 Pain Level 10 04/04/23 10:01
[2023-04-04] MEDS: Normal Saline 1,000 ML 1000 ML IV ×2 (10:27→13:47)
[2023-04-04] MEDS: Ondansetron 4 MG/2 ML VIAL IVP (10:27)
[2023-04-04] MEDS: ACETAMINOPHEN 1,000 MG/100 ML BTL 400 MG IVPB (10:27)
[2023-04-04 10:30] LABS: Absolute Basophil Count 0.01 10^3/uL (0.0-0.2); Absolute Eosinophil Count 0.01 10^3/uL (0.0-0.7); Absolute Lymphocyte Count 0.94 10^3/uL (1.2-3.4); Absolute Monocyte Count 0.41 10^3/uL (0.1-0.8); Absolute Neutrophil Count 1.64 10^3/uL (1.2-6.7); Basophils % 0.3; Eosinophils % 0.3; HGB 14.8 g/dL (11.2-15.7); Lymphocytes % 31.2; MCH 26.1 pg (27.0-33.0); MCHC 33.6 % (32.0-36.0); MCV 78 fL (80-95); MPV 9.6 fL (8.0-11.0); Monocytes % 13.6; Neutrophils % 54.6; Platelet Count 267 10^3/uL (130-400); RBC 5.68 10^6/uL (3.93-5.22); RDW 12.9 % (11.7-14.6); RDW-SD 36.3 fL; WBC 3.01 10^3/uL (4.4-10.8)
[2023-04-04 10:45] LABS: ALT 26 U/L (14-59); AST 25 U/L (15-37); Albumin 4.1 g/dL (3.4-5.0); Alkaline Phosphatase 58 U/L (46-116); Anion Gap 9.5 mmol/L (3-11); BUN 14 mg/dL (7-18); Bilirubin, Total 0.7 mg/dL (0.2-1.0); CO2 25.5 mmol/L (21.0-32.0); CREATININE 0.8 mg/dL (0.55-1.02); Calcium 8.8 mg/dL (8.5-10.1); Chloride 103 mmol/L (98-107); Estimated GFR 97.87 (mL/min/1.73m2); Glucose 92 mg/dL (74-106); Potassium 3.2 mmol/L (3.5-5.1); Sodium 138 mmol/L (136-145); Total Protein 8.4 g/dL (6.4-8.2)
[2023-04-04 11:37] LABS: Bilirubin Small (Negative); Blood Negative (Negative); Clarity Sl Cloudy (Clear); Glucose Negative (Negative); Ketones 15 mg/dL (Negative); Leukocyte Esterase Negative (Negative); Nitrite Negative (Negative); Urobilinogen 0.2 mg/dL (Up to 0.2)
[2023-04-04 11:43] LABS: Epithelial Cells Many HPF (Negative); RBC 0-2 HPF (0-2); WBC 0-2 HPF (0-5)
[2023-04-04 11:44] LABS: Bacteria Many HPF (Negative); C & S Indicated? No/Sq. Contamination; Casts Negative LPF (Negative); Crystals Negative HPF (Negative); Mucus Moderate (Negative)
[2023-04-04 14:23] VITALS: BP 128/71; PULSE 78; RESP 20; O2SAT 98
== END 2023-04-04 14:24 | disposition home or self-care (01) ==
PROVIDERS: Emergency Provider Emergency Medicine; PCP Nurse Practitioner Family
DX: R19.7 Diarrhea, unspecified (principal); E86.0 Dehydration; R11.2 Nausea with vomiting, unspecified
CPT/HCPCS: 80053; 81025; 96361; 96365; 96375; 99284; 81003; 81015; 85025; J0131; J2405

== ENCOUNTER 2023-12-13 12:37 | Emergency (ER) | payer MEDICAID, SELFPAY ==
[2023-12-13 12:43] VITALS: BP 131/74; PULSE 103; RESP 18; TEMP 36.9; O2SAT 98
--- NOTE | 2023-12-13 13:15 | DI.RAD_ITS ---
Exam(s) XR CHEST 2V PA LATERAL EXAM: XR CHEST 2V PA LATERAL CLINICAL HISTORY: cough, wheeze, shortness of breath TECHNIQUE: 2D digital imaging was performed of the chest. Two images were obtained. PA and lateral views were obtained. COMPARISON: No exams were available for comparison FINDINGS: MEDIASTINUM: Normal. HEART: Normal. PULMONARY VASCULATURE: Normal. LUNGS: Clear. PLEURAL SPACE: No pleural effusion or pneumothorax. BONE:Within normal limits for the patient's age. OTHER FINDINGS:Normal. IMPRESSION: No acute pulmonary findings. DATA REPOSITORY: RADIATION DOSE DELIVERED:
[2023-12-13 13:31] LABS: Abs Immature Grans 0.02 10^3/uL (0.0-0.06); Absolute Basophil Count 0.03 10^3/uL (0.0-0.2); Absolute Eosinophil Count 0.09 10^3/uL (0.0-0.7); Absolute Lymphocyte Count 0.89 10^3/uL (1.2-3.4); Absolute Monocyte Count 0.45 10^3/uL (0.1-0.8); Absolute Neutrophil Count 3.43 10^3/uL (1.2-6.7); Basophils % 0.6; Eosinophils % 1.8; HCT 39.4 % (36.0-46.0); HGB 13.2 g/dL (11.2-15.7); Immature Grans % 0.4; Lymphocytes % 18.1; MCH 25.1 pg (27.0-33.0); MCHC 33.5 % (32.0-36.0); MCV 75 fL (80-95); MPV 9.9 fL (8.0-11.0); Monocytes % 9.2; Neutrophils % 69.9; Platelet Count 252 10^3/uL (130-400); RBC 5.25 10^6/uL (3.93-5.22); RDW 13.7 % (11.7-14.6); RDW-SD 36.4 fL; WBC 4.91 10^3/uL (4.4-10.8)
[2023-12-13 13:52] LABS: ALT 22 U/L (14-59); AST 13 U/L (15-37); Albumin 4.2 g/dL (3.4-5.0); Alkaline Phosphatase 64 U/L (46-116); BUN 10 mg/dL (7-18); Bilirubin, Total 0.3 mg/dL (0.2-1.0); CREATININE 0.6 mg/dL (0.55-1.02); Calcium 8.7 mg/dL (8.5-10.1); Chloride 106 mmol/L (98-107); Estimated GFR 119.23 (mL/min/1.73m2); Glucose 101 mg/dL (74-106); Potassium 3.7 mmol/L (3.5-5.1); Sodium 142 mmol/L (136-145); Total Protein 8.1 g/dL (6.4-8.2); Troponin I < 50 ng/L (< or =60)
[2023-12-13 13:58] VITALS: RESP 2; RESP 9
[2023-12-13] MEDS: Albuterol/Ipratropium 3 ML UPD VIAL UPD (13:58)
[2023-12-13] MEDS: predniSONE 20 MG TAB 40 MG PO (13:58)
[2023-12-13 14:14] LABS: Influenza A PCR Negative (Negative); Influenza B PCR Negative (Negative); RSV PCR Negative (Negative)
[2023-12-13 14:17] LABS: Source Nasopharynx
[2023-12-13 14:23] LABS: COVID-19 PCR Positive (Negative)
--- NOTE | 2023-12-13 15:37 | W.ED.GENAD ---
HPI General Date/Time Provider Initiated Documentation: 12/13/23 12:54. HPI Narrative: This 38 year-old female presents with cough, wheeze, shortness of breath, family members are sick similar symptoms. Has pressure consistent shortness of breath and nonproductive cough. Related Data Home Medications Medication Instructions Recorded Confirmed acetaminophen 325 mg capsule 325 mg PO ONCE PRN 02/25/23 12/13/23 (Tylenol) cholecalciferol (vitamin D3) 50 50 mcg PO DAILY 02/25/23 12/13/23 mcg (2,000 unit) capsule multivitamin (Daily Multi-Vitamin 1 tab PO DAILY 02/25/23 12/13/23 tablet) zinc acetate 25 mg (zinc) capsule 25 mg PO DAILY 02/25/23 12/13/23 prednisone 20 mg tablet 40 mg (2 x 20 mg) PO ONCE #10 tabs 12/13/23 Previous Rx's Medication Instructions Recorded prednisone 20 mg tablet 40 mg (2 x 20 mg) PO ONCE #10 tabs 12/13/23 Allergies Allergy/AdvReac Type Severity Reaction Status Date / Time amoxicillin Allergy Unknown HIVES Verified 07/02/19 08:55 penicillin G Allergy Unknown HIVES Verified 07/02/19 08:55 cetirizine [From Zyrtec] Allergy Verified 02/25/23 11:49 clindamycin Allergy Verified 02/25/23 11:49 mold Allergy Verified 02/25/23 11:49 diphenhydramine HCl AdvReac Unknown anxious, Verified 07/02/19 08:55 [From Benadryl] paranoid, couln't sleep CILLINS Allergy Intermediate HIVES Uncoded 07/02/19 08:55 General Stated Complaint: RespSymp JORGE: 3 Course Vital Signs Vital signs: Vital Signs Temperature 36.9 C 12/13/23 12:43 Pulse 103 H 12/13/23 12:43 Respiratory Rate 18 12/13/23 12:43 Blood Pressure 131/74 12/13/23 12:43 Pulse Oximetry 98 12/13/23 12:43 Temperature 36.9 C 12/13/23 12:43 Temperature Source Oral 12/13/23 12:43 Pulse 103 H 12/13/23 12:43 Respiratory Rate 18 12/13/23 12:43 Respiratory Effort Short of Breath 12/13/23 13:11 Respiratory Depth Shallow 12/13/23 13:11 Blood Pressure 131/74 12/13/23 12:43 Pulse Oximetry 98 12/13/23 12:43 Oxygen Delivery Method Room Air 12/13/23 13:58 Oxygen Flow Rate 0 12/13/23 13:58 Pain Level 10 12/13/23 12:43 Lab/Test Results Lab/Test Results: Laboratory Tests Range/Units 12/13/23 13:05 WBC (4.4-10.8) 10^3/uL 4.91 RBC (3.93-5.22) 10^6/uL 5.25 H Hgb (11.2-15.7) g/dL 13.2 Hct (36.0-46.0) % 39.4 MCV (80-95) fL 75 L MCH (27.0-33.0) pg 25.1 L MCHC (32.0-36.0) % 33.5 RDW (11.7-14.6) % 13.7 Plt Count (130-400) 10^3/uL 252 MPV (8.0-11.0) fL 9.9 Immature Gran % 0.4 Neutrophils % 69.9 Lymphocytes % 18.1 Monocytes % 9.2 Eosinophils % 1.8 Basophils % 0.6 Nucleated RBC % (0.0-0.3) % 0.0 Absolute Neutrophils (1.2-6.7) 10^3/uL 3.43 Absolute Lymphocytes (1.2-3.4) 10^3/uL 0.89 L Absolute Monocytes (0.1-0.8) 10^3/uL 0.45 Absolute Eosinophils (0.0-0.7) 10^3/uL 0.09 Absolute Basophils (0.0-0.2) 10^3/uL 0.03 Sodium (136-145) mmol/L 142 Potassium (3.5-5.1) mmol/L 3.7 Chloride (98-107) mmol/L 106 Carbon Dioxide (21.0-32.0) mmol/L 24.0 Anion Gap (3-11) mmol/L 12.0 H BUN (7-18) mg/dL 10 Creatinine (0.55-1.02) mg/dL 0.6 Est GFR (CKD-EPI 2020) (mL/min/1.73m2) 119.23 Glucose (74-106) mg/dL 101 Calcium (8.5-10.1) mg/dL 8.7 Total Bilirubin (0.2-1.0) mg/dL 0.3 AST (15-37) U/L 13 L ALT (14-59) U/L 22 Alkaline Phosphatase (46-116) U/L 64 Troponin I (< or =60) ng/L < 50 Total Protein (6.4-8.2) g/dL 8.1 Albumin (3.4-5.0) g/dL 4.2 COVID-19 Source Nasopharynx SARS-CoV-2 (PCR) (Negative) Positive A Influenza Type A (PCR) (Negative) Negative Influenza Type B (PCR) (Negative) Negative RSV (PCR) (Negative) Negative Medical Decision Making Patient feeling better after DuoNeb, COVID-positive, well, had a supportive care Albuterol, prednisone for home Chest x-ray without acute abnormality per radiology interpretation my review Placed on steroids, nebs, negative chance of Feeling improvement, discharged home with steroids and inhaler Return precautions reviewed and patient expressed understanding Clinically very low suspicion for pulmonary embolism or coronary artery disease Return precautions reviewed and patient expressed understanding, vital stable, no hypoxia Quality:SDOH Health Related Social Needs: No Data to Display PFSH All Active Problems (Updated 12/13/23 @ 14:02 by PASCALE Brock) Bronchitis (Acute) (Acute) Vaginal discharge (Acute) History of anxiety (Chronic) with third History of depression (Chronic) Vertigo (Chronic) Environmental allergies (Chronic) Previous section (Chronic) Herpes genitalis (Chronic) examination or test, positive result (Acute 05/01/16) Medical History (Updated 12/13/23 @ 14:02 by PASCALE Brock) Allergic rhinitis Chronic diarrhea Menorrhagia Low back pain Rhinosinusitis History of migraine Headache Sinusitis, acute Seasonal allergies Knee pain, left Encounter for allergy testing Fatigue Diarrhea Mammary duct ectasia Breast pain, right Stress Hirsutism Anxiety Acne History of snoring Deviated septum Calcium deposit in bursa of right hand Left inguinal pain Pelvic pain in female Dyspareunia Surgical History section (12/16/16) Cholecystectomy (06/29/15) Dr. karyn Gerard Family History Mother Heart disease tachycardia with surgical intervention Father Mental disorder onmedications Sister No problems noted. Sister No problems noted. Brother No problems noted. Brother No problems noted. Brother No problems noted. Brother No problems noted. Brother No problems noted. Brother No problems noted. Other Myocardial infarction Social History Smoking/Tobacco Use Status: Former Tobacco Use Smoking risk assessment performed?: Yes Alcohol Intake: former Drug use: Never Substance use type: does not use Housing: house Do you feel safe at home: Yes Do you feel safe in your relationship?: Yes Female Reproductive History Menstrual Age of Menarche: 16 Duration of menses: 3-5 days control method: condoms History History 5 Para 4 Hx # Term Pregnancies 4 Multiple births 0 Hx # Pregnancies 0 Ectopic pregnancies 0 AB induced 1 Hx Number of Living Children 4 AB spontaneous 0 Past Pregnancies Del. Date GA/Weeks # Preg Succ Route Wgt Sex Labor Lgth Anesthesia Location [facility] 06/18/11 40 No vaginal 3727.962 g Female 14 hrs [facility] 11/20/12 42 No vaginal 4365.827 g Male 24 [facility] 12/16/16 37 No 4365.827 g Male 24 hrs regional c/s by dr. charlton 05/21/19 38 No vaginal 3070.253 g Male regional [facility] Delivery Date: 06/18/11 Last Updated by: Zuly Izquierdo CNM w/o complications Delivery Date: 11/20/12 Last Updated by: Zuly Izquierdo CNM iol for post dates, w/o comp. Delivery Date: 12/16/16 Last Updated by: Megan Rosado CNM c/s for breech, in labor at 8 cms. Delivery Date: 05/21/19 Last Updated by: Ana Luisa Wagner LPN Presented at [facility] with PROM; transferred to [facility] due to previous and desired TOLAC after PROM; Discharge Plan Disposition Patient Disposition: Home Condition: Stable Discharge Details Clinical Impression: Bronchitis Primary Care Provider: Michelle Arroyo ED Provider: Carine Chau Home Meds and New Rx's Prescriptions: New prednisone 20 mg tablet 40 mg PO ONCE Qty: 10 0RF Continued cholecalciferol (vitamin D3) 50 mcg (2,000 unit) capsule 50 mcg PO DAILY acetaminophen [Tylenol] 325 mg capsule 325 mg PO ONCE PRN multivitamin [Daily Multi-Vitamin] Tablet 1 tab PO DAILY zinc acetate 25 mg (zinc) capsule 25 mg PO DAILY Discharge Instructions Instructions: Acute Bronchitis (ED) Additional Instructions: Take prednisone daily, take your next dose tomorrow as you received a dose today 2 puffs of albuterol every 4-6 hours as needed for cough wheeze and shortness of breath Tylenol and ibuprofen as needed for discomfort Return earlier should you have new, worsening, or persistent complaints Referrals: Michelle Arroyo [Primary Care Provider] - Discharge Data Discharge Date/Time-TO BE ENTERED AT DEPARTURE: 12/13/23 16:41
[2023-12-13] MEDS: Albuterol HFA 8 GM 60 PUFF INH IH (16:35)
[2023-12-13 16:36] VITALS: PULSE 84; RESP 18; TEMP 37.2; O2SAT 97
[2023-12-13] MEDS: Normal Saline 1,000 ML 1000 ML IV (16:36)
--- NOTE | 2023-12-14 07:15 | NUR.NOTE ---
Accessed chart to determine orders for EKG and to determine whether or not one needs to be cancelled. None obtained. Nursing Note:
== END 2023-12-13 16:41 | disposition home or self-care (01) ==
LOC: ER 14:37
PROVIDERS: Emergency Provider Physician Assistant; PCP Nurse Practitioner Family
DX: U07.1 COVID-19 (principal); J40 Bronchitis, not specified as acute or chronic; Z87.891 Personal history of nicotine dependence
CPT/HCPCS: 36415; 80053; 87637; 94640; 99284; 71046; 84484; 85025; J7512; J7620

== ENCOUNTER 2024-05-26 11:38 | Emergency (ER) | payer MEDICAID, SELFPAY ==
[2024-05-26 11:39] VITALS: BP 102/71; PULSE 71; RESP 16; TEMP 37.1; O2SAT 99
--- NOTE | 2024-05-26 12:06 | ED.GENADUL_ITS ---
Discharge Plan Disposition Patient Disposition: Home Condition: Stable Discharge Details Clinical Impression: Irritant contact dermatitis of foot Primary Care Provider: Michelle Arroyo ED Provider: Loni Salinas Home Meds and New Rx's Prescriptions: New prednisone 20 mg tablet 40 mg PO DAILY 5 Days Qty: 10 0RF Rx Instructions: Take 2 tablets daily for the next 5 days No Action cholecalciferol (vitamin D3) 50 mcg (2,000 unit) capsule 50 mcg PO DAILY acetaminophen [Tylenol] 325 mg capsule 325 mg PO ONCE PRN multivitamin [Daily Multi-Vitamin] Tablet 1 tab PO DAILY zinc acetate 25 mg (zinc) capsule 25 mg PO DAILY Discharge Instructions Instructions: Contact dermatitis, Skin Rash ED Additional Instructions: Use the hydrocortisone cream topically up to 3 times daily as needed for symptoms. Take the prednisone 2 tablets a day for the next 5 days. You may also try oatmeal baths. Cool compresses. Please take Tylenol or Ibuprofen with food every 4-6 hours as needed for pain and swelling. Follow up with primary care provider in 3-5 days. Return to ED sooner if any worsening or concerns. Referrals: Michelle Arroyo [Primary Care Provider] - 3 days HPI General Mode of arrival: ambulatory . Date/Time Provider Initiated Documentation: 05/26/24 11:44 . Limitations to Documentation: no limitations . Information obtained by: patient, RN notes reviewed and old records reviewed . HPI Narrative: 39-year-old female presents to the ER with a chief complaint of rash to her bilateral feet which began approximately 10 days ago. She now reports that is gotten worse is spreading and her ankles are swollen. She also reports achiness and pain which woke her up this morning. She has been trying essential oils at home which helped for the first couple days and then got worse, she also tried calamine lotion. She has not tried any hydrocortisone cream or any other [id number] remedies. She reports she was walking to regarding initially and may have gotten into some poison oak or sumac. She does have papular, dry crusty rash in clusters noted to her bilateral feet and ankles with surrounding redness, no red streaks no induration no drainage. No other associated symptoms or concerns denies any fever nausea vomiting. She does have a history of rhinosinusitis, deviated symptoms, she does report that she is allergic to Benadryl and oral antihistamine. Related Data Home Medications ?Medication ?Instructions ?Recorded ?Confirmed acetaminophen 325 mg capsule 325 mg PO ONCE PRN 02/25/23 05/26/24 (Tylenol) cholecalciferol (vitamin D3) 50 50 mcg PO DAILY 02/25/23 05/26/24 mcg (2,000 unit) capsule multivitamin (Daily Multi-Vitamin 1 tab PO DAILY 02/25/23 05/26/24 tablet) zinc acetate 25 mg (zinc) capsule 25 mg PO DAILY 02/25/23 05/26/24 prednisone 20 mg tablet 40 mg (2 x 20 mg) PO DAILY 5 days 05/26/24 #10 tabs Previous Rx's ?Medication ?Instructions ?Recorded prednisone 20 mg tablet 40 mg (2 x 20 mg) PO DAILY 5 days 05/26/24 #10 tabs Allergies Allergy/AdvReac Type Severity Reaction Status Date / Time amoxicillin Allergy Unknown HIVES Verified 05/26/24 11:43 penicillin G Allergy Unknown HIVES Verified 05/26/24 11:43 cetirizine (From Zyrtec) Allergy Unknown Verified 05/26/24 11:43 clindamycin Allergy Other (See Verified 05/26/24 11:43 Comment) mold Allergy Other (See Verified 05/26/24 11:43 Comment) diphenhydramine HCl (From AdvReac Unknown anxious, Verified 05/26/24 11:43 Benadryl) paranoid, couln't sleep CILLINS Allergy Intermediate HIVES Uncoded 05/26/24 11:43 General Stated Complaint: RashLesion JORGE: 4 Review of Systems Constitutional Constitutional: Denies body ache(s), Denies chills, Denies fever(s), Denies headache(s) and Denies weakness ENT Ears, Nose, Mouth, and Throat: Denies headache(s) Integumentary/Breasts Skin/Breast: Reports as per HPI, Reports pruritus, Reports rash and Reports skin swelling Neurologic Neurologic: Denies headache(s) and Denies weakness Exam Skin Rashes: rashes noted papules bilateral foot arrangement clustered and confluent, borders raised, color red, distribution (Circumferential), surface rough, scaly and velvety; with no discharge and tender; fluctuant not assessed Trauma: no lacerations or abrasions Wounds: no wounds Hair: normal Nails: normal Full body images: 2 1. Rash Course Vital Signs Vital signs: Vital Signs Temperature 37.1 C 05/26/24 11:39 Pulse 71 05/26/24 11:39 Respiratory Rate 16 05/26/24 11:39 Blood Pressure 102/71 05/26/24 11:39 Pulse Oximetry 99 05/26/24 11:39 Temperature 37.1 C 05/26/24 11:39 Temperature Source Temporal Artery Scan 05/26/24 11:39 Pulse 71 05/26/24 11:39 Respiratory Rate 16 05/26/24 11:39 Respiratory Effort Normal, Non-Labored 05/26/24 11:44 Blood Pressure 102/71 05/26/24 11:39 Blood Pressure Position Sitting 05/26/24 11:39 Pulse Oximetry 99 05/26/24 11:39 Oxygen Delivery Method Room Air 05/26/24 11:39 Oxygen Flow Rate 0 05/26/24 11:39 Medical Decision Making 39-year-old female presents to the ER with a chief complaint of rash to her bilateral feet which began approximately 10 days ago. She now reports that is gotten worse is spreading and her ankles are swollen. She also reports achiness and pain which woke her up this morning. She has been trying essential oils at home which helped for the first couple days and then got worse, she also tried calamine lotion. She has not tried any hydrocortisone cream or any other [id number] remedies. She reports she was walking to regarding initially and may have gotten into some poison oak or sumac. She does have papular, dry crusty rash in clusters noted to her bilateral feet and ankles with surrounding redness, no red streaks no induration no drainage. No other associated symptoms or concerns denies any fever nausea vomiting. She does have a history of rhinosinusitis, deviated symptoms, she does report that she is allergic to Benadryl and oral antihistamine. Denies any systemic complaints. Hydrocortisone cream and 40 mg prednisone and ibuprofen 400 mg p.o. ordered. I did discuss home care with patient and oatmeal baths. She verbalized understanding. Differential diagnosis includes not limited to contact dermatitis, poison sumac or poison oak, viral rash, other unspecified rash. This text was generated using [employer] system, please disregard any oddities of phrase or misspellings. Quality:SDOH Health Related Social Needs: 2 No Data to Display PFSH All Active Problems (Updated 05/26/24 @ 12:09 by Loni Salinas NP) Irritant contact dermatitis of foot (Acute) (Acute) Vaginal discharge (Acute) History of anxiety (Chronic) with third History of depression (Chronic) Vertigo (Chronic) Environmental allergies (Chronic) Previous section (Chronic) Herpes genitalis (Chronic) examination or test, positive result (Acute 05/01/16) Medical History (Updated 05/26/24 @ 12:09 by Loni Salinas NP) Allergic rhinitis Chronic diarrhea Menorrhagia Low back pain Rhinosinusitis History of migraine Headache Sinusitis, acute Seasonal allergies Knee pain, left Encounter for allergy testing Fatigue Diarrhea Mammary duct ectasia Breast pain, right Stress Hirsutism Anxiety Acne History of snoring Deviated septum Calcium deposit in bursa of right hand Left inguinal pain Pelvic pain in female Dyspareunia Surgical History section (12/16/16) Cholecystectomy (06/29/15) Dr. karyn Gerard Family History Mother Heart disease tachycardia with surgical intervention Father Mental disorder onmedications Sister No problems noted. Sister No problems noted. Brother No problems noted. Brother No problems noted. Brother No problems noted. Brother No problems noted. Brother No problems noted. Brother No problems noted. Other Myocardial infarction Social History Smoking/Tobacco Use Status: Former Tobacco Use Smoking risk assessment performed?: Yes Alcohol Intake: current Alcohol Intake frequency: holidays/special occasions only Drug use: Never Substance use type: does not use Housing: house Do you feel safe at home: Yes Do you feel safe in your relationship?: Yes Female Reproductive History Menstrual Age of Menarche: 16 Duration of menses: 3-5 days control method: condoms History History 2 5 Para 4 Hx # Term Pregnancies 4 Multiple births 0 Hx # Pregnancies 0 Ectopic pregnancies 0 AB induced 1 Hx Number of Living Children 4 AB spontaneous 0 Past Pregnancies Del. Date GA/Weeks # Preg Succ Route Wgt Sex Labor Lgth Anesth esia Location Prov Complic 08/22/11 40 No vaginal 3727.962 g Female 14 hrs [facility] 11/20/12 42 No vaginal 4365.827 g Male 24 [facility] 12/16/16 37 No 4365.827 g Male 24 hrs regional c/s by dr. charlton 05/21/19 38 No vaginal 3070.253 g Male regional [facility] Delivery Date: 06/18/11 Last Updated by: Zuly Izquierdo CNM w/o complications Delivery Date: 11/20/12 Last Updated by: Zuly Izquierdo CNM iol for post dates, w/o comp. Delivery Date: 12/16/16 Last Updated by: Megan Rosado CNM c/s for breech, in labor at 8 cms. Delivery Date: 05/21/19 Last Updated by: Ana Luisa Wagner LPN Presented at [facility] with PROM; transferred to [facility] due to previous and desired TOLAC after PROM;
[2024-05-26] MEDS: Hydrocortisone 1% CR 30 GM TUBE TP (12:14)
[2024-05-26] MEDS: predniSONE 20 MG TAB 40 MG PO (12:14)
[2024-05-26] MEDS: Ibuprofen 400 MG TAB PO (12:14)
== END 2024-05-26 12:21 | disposition home or self-care (01) ==
PROVIDERS: Emergency Provider Registered Nurse Emergency; PCP Nurse Practitioner Family
DX: L24.9 Irritant contact dermatitis, unspecified cause (principal)
CPT/HCPCS: 99283; J7512

== ENCOUNTER 2025-08-23 03:27 | Outpatient (CLI) | payer MEDICAID, SELFPAY ==
--- NOTE | 2025-08-23 09:33 | DI.RAD_ITS ---
Exam(s) XR SHOULDER RT COMPLETE 2+V EXAM: XR SHOULDER RT COMPLETE 2+V CLINICAL HISTORY: ACUTE ON CHRONIC RT SHOULDER PAIN, M25.511,PAIN RT SHOULDER,RANGE OF MOTION. TECHNIQUE: 2D digital imaging was performed of the right shoulder. Four images were obtained. AP, Grashey, Y-view and axillary views were obtained. COMPARISON: CR XR CHEST 2V PA LATERAL from 12/13/2023 FINDINGS: BONES: No acute fracture is present. No bony destructive lesion is seen. JOINTS: No dislocation present. The glenohumeral and acromioclavicular joints are unremarkable. SOFT TISSUE: There is calcification in the soft tissues adjacent to the greater tuberosity consistent with calcific tendinitis. IMPRESSION: Calcific tendinitis of the right shoulder. DATA REPOSITORY: RADIATION DOSE DELIVERED:
== END 2025-08-23 03:47 ==
LOC: DI 03:27
PROVIDERS: PCP Nurse Practitioner Family; Visit Provider Family Medicine
DX: M75.31 Calcific tendinitis of right shoulder (principal)
CPT/HCPCS: 73030